=== PATIENT | female | born 1960 | race Hispanic/Latino ===

== ENCOUNTER 2024-01-22 14:00 | Outpatient (RCR) | payer OTHER ==
[~2024-01-22 14:00] MED LIST: ATORVASTATIN CA20 MG PO; BENICAR20 MG PO; NKM; OMEGA 3 1,0001 EACH PO; OMEPRAZOLE40 MG PO; VITAMIN D3 COM1 EACH PO; Z.0.NAPROSYN500 MG PO
== END 2024-02-15 ==
LOC: OT 14:00
PROVIDERS: ATTEND Specialist
DX: S52.134D Nondisplaced fracture of neck of right radius, subsequent encounter for closed fracture with routine healing (principal); M25.521 Pain in right elbow; M25.621 Stiffness of right elbow, not elsewhere classified; R53.1 Weakness